=== PATIENT | male | born 1960 | race Caucasian/White ===

== ENCOUNTER 2018-12-24 13:09 | Emergency (ER) | payer OTHER ==
[~2018-12-24] VITALS: Ht 175.3 cm; Wt 81.8 kg
[2018-12-24] MEDS ORDERED: METF-960 PO (13:22)
[2018-12-24] MEDS ORDERED: ATEN50TA PO (13:22)
[2018-12-24 13:24] LABS: GLUCOSE,POINT OF CARE 183 MG/DL (70-110)
[2018-12-24] MEDS ORDERED: LIDOCAINE 1% 10 ML VIAL INJ ONE (14:45)
[2018-12-24] MEDS ORDERED: PERTUSS(ACELL),DIPH,TET VAC/PF 0.5 ML VIAL IM ONE (15:00)
[2018-12-24] MEDS ORDERED: ACETAMINOPHEN 325 MG TABLET PO ONE (15:00)
[2018-12-24] MEDS ORDERED: SODIUM CHLORIDE 0.9% 1,000 ML IV ONE (15:00)
[2018-12-24] MEDS ORDERED: IBUPROFEN 800 MG TABLET PO ONE (15:00)
[2018-12-24 16:53] VITALS: BP 135/60
== END 2018-12-24 16:56 | disposition home or self-care (01) ==
LOC: EMS 13:13
DX: L02.212 Cutaneous abscess of back [any part, except buttock and flank] (principal); I10 Essential (primary) hypertension; E11.9 Type 2 diabetes mellitus without complications; Z79.84 Long term (current) use of oral hypoglycemic drugs; F12.90 Cannabis use, unspecified, uncomplicated; F17.210 Nicotine dependence, cigarettes, uncomplicated
CPT/HCPCS: 10060; 82962; 90471; 90715; 99284; J3490; J7030

== ENCOUNTER 2018-12-26 09:23 | Emergency (ER) | payer OTHER ==
[~2018-12-26] VITALS: Ht 175.3 cm; Wt 81.8 kg
[~2018-12-26 09:23] MED LIST: ATEN50TA PO; METF-960 PO
[2018-12-26 09:35] LABS: GLUCOSE,POINT OF CARE 208 MG/DL (70-110)
[2018-12-26 11:14] VITALS: BP 131/65
== END 2018-12-26 12:44 | disposition home or self-care (01) ==
LOC: EMS 09:23
DX: Z48.01 Encounter for change or removal of surgical wound dressing (principal); I10 Essential (primary) hypertension; E11.9 Type 2 diabetes mellitus without complications; F12.90 Cannabis use, unspecified, uncomplicated; F17.210 Nicotine dependence, cigarettes, uncomplicated; Z79.84 Long term (current) use of oral hypoglycemic drugs
CPT/HCPCS: 99406

== ENCOUNTER 2018-12-28 08:37 | Inpatient (IN) | payer OTHER ==
[~2018-12-28] VITALS: Ht 175.3 cm; Wt 86.9 kg
[2018-12-28 09:01] LABS: GLUCOSE,POINT OF CARE 209 MG/DL (70-110)
[2018-12-28] MEDS ORDERED: VANCOMYCIN HCL 1 GM/D5% WATER 200 ML IV ONE ×2 (12:45→21:00)
[2018-12-28] MEDS ORDERED: ONDANSETRON HCL 4 MG/2 ML VIAL IVP ONE (12:45)
[2018-12-28] MEDS ORDERED: HYDROmorphone 2 MG/ML SYRINGE IVP ONE (12:45)
[2018-12-28 13:05] LABS: BASOPHILS % (AUTO) 0.5 % (0.0-2.0); EOSINOPHILS % (AUTO) 1.6 % (1.0-6.0); HEMATOCRIT 43.9 % (41-53); HEMOGLOBIN 14.9 g/dL (13.5-17.5); LYMPHOCYTES # (AUTO) 1.9 K/uL (1.0-4.8); LYMPHOCYTES % (AUTO) 20.6 % (22.0-44.0); MEAN CORPUSCULAR HEMOGLOBIN 32.9 pg (26.0-34.0); MEAN CORPUSCULAR HGB CONC 33.9 G/dL (31.0-37.0); MEAN CORPUSCULAR VOLUME 97 fL (80-100); MONOCYTES # (AUTO) 0.5 K/uL (0.1-1.0); MONOCYTES % (AUTO) 5.1 % (2.0-9.0); NEUTROPHILS # (AUTO) 6.6 K/uL (1.8-7.7); NEUTROPHILS % (AUTO) 72.2 % (40.0-70.0); PLATELET COUNT (AUTO) 347 K/uL (150-450); RED BLOOD CELL COUNT(AUTO) 4.51 MIL/uL (4.50-5.90); RED CELL DISTRIBUTION WIDTH 13.3 % (11.5-14.5)
[2018-12-28 13:18] LABS: ANION GAP 10 mmol/L (8-16); CARBON DIOXIDE 28 mmol/L (22-29); CHLORIDE 99 mmol/L (98-107); CREATININE 0.82 mg/dL (0.60-1.30); GLOMERULAR FILTR. RATE CALC > 60 mL/min (>60); GLUCOSE,RANDOM 135 mg/dL (70-110); POTASSIUM 4.2 mmol/L (3.5-5.1); SODIUM SERUM 137 mmol/L (136-145); UREA NITROGEN, BLOOD 12 mg/dL (7-18)
[2018-12-28] MEDS ORDERED: POVIDONE-IODINE 10% 120 ML SOLUTION TP ONE ×2 (13:22→13:30)
[2018-12-28 13:26] LABS: LACTIC ACID 3.2 mmol/L (0.4-2.0)
[2018-12-28 13:30] LABS: ALANINE AMINOTRANSFERASE 35 U/L (12-78); ALBUMIN 3.2 g/dL (3.4-5.0); ALKALINE PHOSPHATASE 69 U/L (46-116); ASPARTATE AMINOTRANSFERASE 22 U/L (15-37); BILIRUBIN,TOTAL 0.2 mg/dL (0.1-1.0); TOTAL PROTEIN, SERUM 7.8 g/dL (6.4-8.2)
[2018-12-28] MEDS ORDERED: ONDANSETRON HCL 4 MG/2 ML VIAL IVP PRN ×2 (13:30→16:00)
[2018-12-28] MEDS ORDERED: ACETAMINOPHEN 325 MG TABLET PO PRN ×2 (13:30→16:00)
[2018-12-28] MEDS ORDERED: 0.9% SODIUM CHLORIDE 10 ML SYRINGE IVP PRN (13:30)
[2018-12-28 15:59] VITALS: BP 152/88
[2018-12-28] MEDS ORDERED: IPRATROPIUM BROMIDE 0.5 MG/2.5 ML NEB SOLUTION NEB PRN (16:00)
[2018-12-28] MEDS ORDERED: ZOLPIDEM TARTRATE 5 MG TABLET PO PRN (16:00)
[2018-12-28] MEDS ORDERED: MORPHINE SULFATE 2 MG/ML SYRINGE IVP PRN (16:00)
[2018-12-28] MEDS ORDERED: INSULIN LISPRO 100 UNITS/ML SQ PRN (16:00)
[2018-12-28] MEDS ORDERED: MAGNESIUM HYDROXIDE SUSPENSION 30 ML UDCUP PO PRN (16:00)
[2018-12-28] MEDS ORDERED: HYDROCODONE/ACETAMINOPHEN 5-325 MG TABLET PO PRN (16:00)
[2018-12-28] MEDS ORDERED: ALBUTEROL SULFATE 2.5 MG/0.5 ML NEB SOLUTION NEB PRN (16:00)
[2018-12-28] MEDS ORDERED: DEXTROSE 50%-WATER 25 GM/50 ML SYRINGE IVP PRN (16:00)
[2018-12-28] MEDS ORDERED: BISACODYL 10 MG RECTAL RECTAL SUPPOSITORY PR PRN (16:00)
[2018-12-28] MEDS: HEPARIN SODIUM,PORCINE 5,000 UNITS/ML VIAL SQ SCH ×2 (16:28→23:17)
[2018-12-28 19:26] VITALS: BP 139/71
[2018-12-28] MEDS: MetFORMIN HCL 500 MG TABLET PO SCH (20:19)
[2018-12-28] MEDS: ATENOLOL 50 MG TABLET PO SCH (20:19)
[2018-12-28] MEDS: FAMOTIDINE 20 MG TABLET PO SCH (20:20)
[2018-12-28] MEDS: DOCUSATE SODIUM 100 MG CAPSULE PO SCH (21:00)
[2018-12-28 21:05] LABS: GLUCOMETER DEV NAME(LOC) 6N.2; GLUCOSE,POINT OF CARE 122 MG/DL (70-110)
[2018-12-28 23:10] VITALS: BP 122/68
[2018-12-29 00:05] LABS: GLUCOMETER DEV NAME(LOC) 6N.1; GLUCOSE,POINT OF CARE 239 MG/DL (70-110)
[2018-12-29 06:05] VITALS: BP 139/79
[2018-12-29 06:06] LABS: GLUCOMETER DEV NAME(LOC) 6N.1; GLUCOSE,POINT OF CARE 214 MG/DL (70-110)
[2018-12-29 07:22] VITALS: BP 145/84
[2018-12-29] MEDS ORDERED: VANCOMYCIN HCL 1.25 GM in DEXTROSE 5%-WATER 250 ML IV SCH (08:00)
[2018-12-29] MEDS: HEPARIN SODIUM,PORCINE 5,000 UNITS/ML VIAL SQ SCH (08:00)
[2018-12-29] MEDS: FAMOTIDINE 20 MG TABLET PO SCH (08:48)
[2018-12-29] MEDS: MetFORMIN HCL 500 MG TABLET PO SCH (08:48)
[2018-12-29] MEDS: ATENOLOL 50 MG TABLET PO SCH (08:49)
[2018-12-29] MEDS: DOCUSATE SODIUM 100 MG CAPSULE PO SCH (08:49)
[2018-12-29 11:28] VITALS: BP 136/81
[2018-12-30] MEDS ORDERED: MULTIVITAMINS WITH MINERALS, THERAPEUTIC TABLET PO SCH (09:00)
[2018-12-30 12:07] LABS: GLUCOMETER DEV NAME(LOC) 6N.1; GLUCOSE,POINT OF CARE 130 MG/DL (70-110)
== END 2018-12-29 15:00 | disposition home health service (06) | DRG 572 ==
LOC: EMS 08:39 → 6N 14:02
PROVIDERS: ADMIT Hospitalist; ATTEND Hospitalist
PROC: 0JB70ZZ Excision of Back Subcutaneous Tissue and Fascia, Open Approach (ICD-10-PCS; principal; 2018-12-28)
DX: L02.212 Cutaneous abscess of back [any part, except buttock and flank] (principal); L03.313 Cellulitis of chest wall; E11.65 Type 2 diabetes mellitus with hyperglycemia; F12.90 Cannabis use, unspecified, uncomplicated; F17.210 Nicotine dependence, cigarettes, uncomplicated; I10 Essential (primary) hypertension; L02.211 Cutaneous abscess of abdominal wall; Z71.6 Tobacco abuse counseling
CPT/HCPCS: 83605; 87040; J1170; J1644; J2405; J3370; J7060